=== PATIENT | female | born 1985 | race Caucasian/White ===

== ENCOUNTER → 2017-01-24 | Outpatient (CLI) | payer MEDICAID ==
[~2017-01-24] MED LIST: ALPR0.5T6 PO; DIPH25CA61; FENU500C PO; FOLIC ACID; HYDR-3138 PO; IBUP800T PO; OXYC-229 PO; OXYC-302 PO; PREN1TAB60; SERT50TA PO; VENL75CA6 PO
== END | disposition home or self-care (01) ==
LOC: RAD 12:42
PROVIDERS: ATTEND Nurse Practitioner Primary Care
DX: N83.202 Unspecified ovarian cyst, left side (principal); N83.201 Unspecified ovarian cyst, right side; Z90.710 Acquired absence of both cervix and uterus
CPT/HCPCS: 76830

== ENCOUNTER 2017-04-09 20:04 | Emergency (ER) | payer MEDICAID, OTHER ==
[~2017-04-09] VITALS: Ht 157.5 cm; Wt 63.0 kg
[~2017-04-09 20:04] MED LIST changes: -HYDR-3138 PO; +HYDR-3237 PO; +IBUP-1223 PO; -IBUP800T PO; -OXYC-229 PO; +OXYC-307 PO
[2017-04-09] MEDS ORDERED: MAALOX/HYOSCYAMINE/LIDOCAINE 45 ML BTL PO ONE (20:30)
[2017-04-09] MEDS ORDERED: FAMOTIDINE 20 MG/2 ML IVP ONE (20:30)
[2017-04-09] MEDS ORDERED: SODIUM CHLORIDE FLUSH 10ML SYR IVF ONE (20:30)
[2017-04-09] MEDS ORDERED: ONDANSETRON 2MG/ML, 2ML IVPush ONE (20:30)
[2017-04-09] MEDS ORDERED: SODIUM CHLORIDE 0.9% 1,000ML IVBOLUS ONE (20:30)
[2017-04-09] MEDS ORDERED: FAMOTIDINE 20 MG/2 ML ONE (20:49)
[2017-04-09] MEDS ORDERED: ONDANSETRON 2MG/ML, 2ML ONE ×2 (20:49→23:19)
[2017-04-09] MEDS ORDERED: MAALOX/HYOSCYAMINE/LIDOCAINE 45 ML BTL ONE (20:49)
[2017-04-09 21:04] LABS: HEMATOCRIT 41.3 % (34.6-47.8); HEMOGLOBIN 14.1 g/dL (11.7-16.4); WHITE BLOOD COUNT 5.7 x10^3/uL (3.4-10)
[2017-04-09 21:11] LABS: BLOOD UREA NITROGEN 8 mg/dL (7-18)
[2017-04-09 21:36] LABS: ASPARTATE AMINO TRANSFERASE 18 U/L (15-37)
[2017-04-09 23:28] VITALS: BP 97/66
== END 2017-04-09 23:52 | disposition home or self-care (01) ==
LOC: ED 23:10
DX: A09 Infectious gastroenteritis and colitis, unspecified (principal); G89.29 Other chronic pain; R10.9 Unspecified abdominal pain; F17.200 Nicotine dependence, unspecified, uncomplicated; Z90.710 Acquired absence of both cervix and uterus
CPT/HCPCS: 36415; 80048; 80076; 82040; 83690; 84703; 85025; 96361; 96374; 96375; 99284; J2405; J7030; S0028

== ENCOUNTER 2017-09-11 14:43 | Emergency (ER) | payer MEDICAID ==
[~2017-09-11] VITALS: Ht 160 cm; Wt 62.1 kg
[2017-09-11 15:18] LABS: BASOPHILS # (AUTO) 0.01 x10^3/uL (0-0.1); BASOPHILS % (AUTO) 0 % (0-1); EOSINOPHILS # (AUTO) 0.01 x10^3/uL (0-0.4); EOSINOPHILS % (AUTO) 0 % (1-7); LYMPHOCYTES # (AUTO) 1.81 x10^3/uL (1-3.4); LYMPHOCYTES % (AUTO) 39 % (22-44); MD NO; MEAN CORPUSCULAR HEMOGLOBIN 33.9 pg (27.0-34.8); MEAN CORPUSCULAR HGB CONC 34.7 g/dL (32.4-35.8); MEAN CORPUSCULAR VOLUME 97.7 fL (80-100); MEAN PLATELET VOLUME 6.6 fL (7.4-10.4); MONOCYTES # (AUTO) 0.25 x10^3/uL (0.2-0.8); MONOCYTES % (AUTO) 6 % (2-9); NEUTROPHILS # (AUTO) 2.54 x10^3/uL (1.8-6.8); NEUTROPHILS % (AUTO) 55 % (42-75); PLATELET COUNT 269 x10^3/uL (130-400); RED BLOOD COUNT 4.01 x10^6/uL (3.82-5.3); RED CELL DISTRIBUTION WIDTH 12.5 % (9.6-15.2)
[2017-09-11 15:31] LABS: ALBUMIN 4.1 g/dL (3.4-5.0); ANION GAP 5 mmol/L (5-15); CALCIUM 8.2 mg/dL (8.5-10.1); CHLORIDE 116 mmol/L (98-107)
[2017-09-11 15:34] LABS: ALANINE AMINOTRANSFERASE 21 U/L (12-78); ALKALINE PHOSPHATASE 39 U/L (45-117); BILIRUBIN,TOTAL 0.7 mg/dL (0.2-1.0); CREATININE 0.84 mg/dL (0.55-1.02); TOTAL PROTEIN 7.5 g/dL (6.4-8.2)
[2017-09-11] MEDS ORDERED: IBUPROFEN 200 MG TABLET ONE (15:49)
[2017-09-11] MEDS ORDERED: IBUPROFEN 200 MG TABLET PO ONE (16:00)
[2017-09-11] MEDS ORDERED: HYDR-3307 PO (16:55)
[2017-09-11] MEDS ORDERED: DULO60CA7 PO (16:56)
[2017-09-11 17:12] LABS: MICROSCOPIC INDICATED
[2017-09-11 17:25] LABS: CULTURE INDICATED? NO
[2017-09-11 18:17] VITALS: BP 132/86
== END 2017-09-11 18:19 | disposition home or self-care (01) ==
LOC: ED 15:45
DX: R10.32 Left lower quadrant pain (principal); Z90.710 Acquired absence of both cervix and uterus; F17.200 Nicotine dependence, unspecified, uncomplicated
CPT/HCPCS: 36415; 76830; 80053; 81001; 85025; 99285

== ENCOUNTER 2017-11-23 10:19 | Emergency (ER) | payer MEDICAID ==
[~2017-11-23] VITALS: Ht 160 cm; Wt 59.0 kg
[~2017-11-23 10:19] MED LIST changes: +DULO60CA7 PO; +HYDR-3307 PO
[2017-11-23] MEDS ORDERED: KETOROLAC 30 MG/1 ML ONE (11:09)
[2017-11-23 11:15] VITALS: BP 107/68
[2017-11-23 11:19] LABS: BASOPHILS # (AUTO) 0.01 x10^3/uL (0-0.1); BASOPHILS % (AUTO) 0 % (0-1); EOSINOPHILS # (AUTO) 0.06 x10^3/uL (0-0.4); EOSINOPHILS % (AUTO) 2 % (1-7); LYMPHOCYTES % (AUTO) 38 % (22-44); MD NO; MEAN CORPUSCULAR HGB CONC 33.8 g/dL (32.4-35.8); MEAN CORPUSCULAR VOLUME 100.7 fL (80-100); MEAN PLATELET VOLUME 6.5 fL (7.4-10.4); MONOCYTES # (AUTO) 0.24 x10^3/uL (0.2-0.8); MONOCYTES % (AUTO) 6 % (2-9); NEUTROPHILS # (AUTO) 2.11 x10^3/uL (1.8-6.8); NEUTROPHILS % (AUTO) 54 % (42-75); PLATELET COUNT 260 x10^3/uL (130-400); RED BLOOD COUNT 3.94 x10^6/uL (3.82-5.3); RED CELL DISTRIBUTION WIDTH 12.8 % (9.6-15.2)
[2017-11-23] MEDS ORDERED: KETOROLAC 30 MG/1 ML IM ONE (11:30)
[2017-11-23 11:37] LABS: ALBUMIN 3.8 g/dL (3.4-5.0); ANION GAP 7 mmol/L (5-15); CALCIUM 8.4 mg/dL (8.5-10.1); CHLORIDE 114 mmol/L (98-107); CREATININE 0.76 mg/dL (0.55-1.02)
== END 2017-11-23 12:42 | disposition home or self-care (01) ==
LOC: ED 12:00
DX: R10.32 Left lower quadrant pain (principal); K92.0 Hematemesis; R30.0 Dysuria; F32.9 Major depressive disorder, single episode, unspecified; Z90.710 Acquired absence of both cervix and uterus
CPT/HCPCS: 36415; 76830; 80048; 82040; 85025; 96372; 99285; J1885

== ENCOUNTER 2017-12-03 13:27 | Emergency (ER) | payer MEDICAID ==
[~2017-12-03] VITALS: Ht 160 cm; Wt 59.1 kg
[2017-12-03] MEDS ORDERED: ONDANSETRON ODT 4 MG ONE (13:37)
[2017-12-03] MEDS ORDERED: ONDANSETRON ODT 4 MG PO ONE (14:00)
[2017-12-03 14:08] LABS: BASOPHILS # (AUTO) 0.02 x10^3/uL (0-0.1); BASOPHILS % (AUTO) 1 % (0-1); EOSINOPHILS # (AUTO) 0.07 x10^3/uL (0-0.4); EOSINOPHILS % (AUTO) 2 % (1-7); LYMPHOCYTES # (AUTO) 1.75 x10^3/uL (1-3.4); LYMPHOCYTES % (AUTO) 36 % (22-44); MD NO; MEAN CORPUSCULAR HEMOGLOBIN 34.1 pg (27.0-34.8); MEAN CORPUSCULAR VOLUME 100.4 fL (80-100); MEAN PLATELET VOLUME 6.6 fL (7.4-10.4); MONOCYTES % (AUTO) 6 % (2-9); NEUTROPHILS % (AUTO) 56 % (42-75); PLATELET COUNT 269 x10^3/uL (130-400); RED BLOOD COUNT 4.22 x10^6/uL (3.82-5.3); RED CELL DISTRIBUTION WIDTH 12.8 % (9.6-15.2)
[2017-12-03 14:18] LABS: ALANINE AMINOTRANSFERASE 26 U/L (12-78); ALBUMIN 3.9 g/dL (3.4-5.0); ANION GAP 6 mmol/L (5-15); CALCIUM 8.4 mg/dL (8.5-10.1); CHLORIDE 110 mmol/L (98-107); CREATININE 0.82 mg/dL (0.55-1.02)
[2017-12-03 14:21] LABS: ALKALINE PHOSPHATASE 43 U/L (45-117); BILIRUBIN,TOTAL 0.4 mg/dL (0.2-1.0); TOTAL PROTEIN 7.2 g/dL (6.4-8.2)
[2017-12-03 15:03] LABS: CULTURE INDICATED? YES; MICROSCOPIC INDICATED
[2017-12-03] MEDS ORDERED: OXYcodone/APAP 10/325MG TABLET ONE (15:15)
[2017-12-03] MEDS ORDERED: OXYcodone/APAP 10/325MG TABLET PO ONE (15:30)
[2017-12-03 15:55] VITALS: BP 117/74
== END 2017-12-03 15:58 | disposition home or self-care (01) ==
LOC: ED 14:55
DX: N83.202 Unspecified ovarian cyst, left side (principal); N83.201 Unspecified ovarian cyst, right side; N80.9 Endometriosis, unspecified; F17.200 Nicotine dependence, unspecified, uncomplicated; Z90.710 Acquired absence of both cervix and uterus; Z98.51 Tubal ligation status
CPT/HCPCS: 36415; 76830; 80053; 81001; 83690; 85025; 87086; 99285; Q0162

== ENCOUNTER 2018-04-06 17:12 | Emergency (ER) | payer MEDICAID ==
[~2018-04-06] VITALS: Ht 162.6 cm; Wt 64.4 kg
[2018-04-06 17:29] VITALS: BP 113/74
[2018-04-06] MEDS ORDERED: KETOROLAC 30 MG/1 ML ONE (18:00)
[2018-04-06] MEDS ORDERED: KETOROLAC 30 MG/1 ML IM ONE (18:00)
[2018-04-06] MEDS ORDERED: HYDROcodone/APAP 5/325 TABLET ONE (18:22)
[2018-04-06] MEDS ORDERED: HYDROcodone/APAP 5/325 TABLET PO ONE (18:30)
== END 2018-04-06 18:33 | disposition home or self-care (01) ==
LOC: ED 18:05
DX: S46.011A Strain of muscle(s) and tendon(s) of the rotator cuff of right shoulder, initial encounter (principal); X58.XXXA Exposure to other specified factors, initial encounter; Y93.89 Activity, other specified; Y92.89 Other specified places as the place of occurrence of the external cause; Y99.8 Other external cause status
CPT/HCPCS: 73030; 96372; 99284; J1885

== ENCOUNTER 2018-05-05 12:39 | Emergency (ER) | payer MEDICAID ==
[~2018-05-05] VITALS: Ht 160 cm; Wt 64.0 kg
[2018-05-05] MEDS ORDERED: LORazepam 1MG TABLET PO ONE (13:00)
[2018-05-05 13:10] LABS: BASOPHILS # (AUTO) 0.03 x10^3/uL (0-0.1); BASOPHILS % (AUTO) 1 % (0-1); EOSINOPHILS # (AUTO) 0.08 x10^3/uL (0-0.4); EOSINOPHILS % (AUTO) 2 % (1-7); LYMPHOCYTES # (AUTO) 1.71 x10^3/uL (1-3.4); LYMPHOCYTES % (AUTO) 37 % (22-44); MD NO; MEAN CORPUSCULAR HEMOGLOBIN 34.9 pg (27.0-34.8); MEAN CORPUSCULAR HGB CONC 34.8 g/dL (32.4-35.8); MEAN CORPUSCULAR VOLUME 100.3 fL (80-100); MEAN PLATELET VOLUME 6.7 fL (7.4-10.4); MONOCYTES # (AUTO) 0.35 x10^3/uL (0.2-0.8); MONOCYTES % (AUTO) 7 % (2-9); NEUTROPHILS # (AUTO) 2.52 x10^3/uL (1.8-6.8); NEUTROPHILS % (AUTO) 54 % (42-75); PLATELET COUNT 266 x10^3/uL (130-400); RED CELL DISTRIBUTION WIDTH 12.9 % (9.6-15.2)
[2018-05-05 13:22] LABS: ALBUMIN 4.1 g/dL (3.4-5.0); ANION GAP 8 mmol/L (5-15); CALCIUM 8.8 mg/dL (8.5-10.1); CHLORIDE 110 mmol/L (98-107)
[2018-05-05 13:28] LABS: ALANINE AMINOTRANSFERASE 28 U/L (12-78); ALKALINE PHOSPHATASE 41 U/L (45-117); BILIRUBIN,TOTAL 0.6 mg/dL (0.2-1.0); CREATININE 0.74 mg/dL (0.55-1.02); TOTAL PROTEIN 7.4 g/dL (6.4-8.2)
[2018-05-05 13:29] LABS: ACETAMINOPHEN < 2 mcg/mL (10-30); SALICYLATE LEVEL < 1.7 mg/dL (2.8-20.0)
[2018-05-05] MEDS ORDERED: ALPR2TAB2 PO (14:12)
[2018-05-05] MEDS ORDERED: SERT50TA PO (14:13)
[2018-05-05] MEDS ORDERED: LORazepam 1MG TABLET ONE (14:20)
[2018-05-05 18:04] LABS: AMPHETAMINE SCREEN, URINE Negative (Negative); BARBITURATE SCREEN, URINE Negative (Negative); BENZODIAZEPINE SCREEN, URINE Negative (Negative); CANNABINOID SCREEN, URINE Negative (Negative); COCAINE SCREEN, URINE Negative (Negative); OPIATE SCREEN, URINE Negative (Negative)
[2018-05-05 18:06] LABS: METHADONE SCREEN, URINE Negative (Negative)
[2018-05-05 18:32] VITALS: BP 106/70
== END 2018-05-05 18:35 | disposition home or self-care (01) ==
LOC: ED 14:18
DX: F41.9 Anxiety disorder, unspecified (principal); F32.9 Major depressive disorder, single episode, unspecified; Z87.42 Personal history of other diseases of the female genital tract; Z90.710 Acquired absence of both cervix and uterus; Z98.51 Tubal ligation status
CPT/HCPCS: 36415; 80053; 80307; 80329; 84443; 84703; 85025; 99284; G0480

== ENCOUNTER 2018-05-09 20:00 | Emergency (ER) | payer MEDICAID ==
[~2018-05-09] VITALS: Ht 157.5 cm; Wt 135.0 kg
[~2018-05-09 20:00] MED LIST changes: +ALPR2TAB2 PO
[2018-05-09 20:06] VITALS: BP 104/73
[2018-05-09] MEDS ORDERED: LORazepam 1MG TABLET PO ONE ×2 (21:00→21:30)
[2018-05-09] MEDS ORDERED: LORazepam 1MG TABLET ONE ×2 (21:07→21:33)
== END 2018-05-09 21:41 | disposition home or self-care (01) ==
LOC: ED 21:20
DX: F41.0 Panic disorder [episodic paroxysmal anxiety] (principal); F32.9 Major depressive disorder, single episode, unspecified; F17.210 Nicotine dependence, cigarettes, uncomplicated; Z76.0 Encounter for issue of repeat prescription
CPT/HCPCS: 99283

== ENCOUNTER 2018-06-05 21:13 | Emergency (ER) | payer MEDICAID ==
[~2018-06-05] VITALS: Ht 157.5 cm; Wt 65.3 kg
[2018-06-05 21:24] VITALS: BP 102/73
[2018-06-05] MEDS ORDERED: MORPHINE SULFATE 4 MG/ML, 1ML ONE ×2 (21:51→23:04)
[2018-06-05] MEDS ORDERED: ONDANSETRON 2MG/ML, 2ML ONE (21:51)
[2018-06-05] MEDS: MORPHINE SULFATE 4 MG/ML, 1ML IVPush PRN ×2 (22:00→23:08)
[2018-06-05] MEDS ORDERED: SODIUM CHLORIDE FLUSH 10ML SYR IVF ONE (22:00)
[2018-06-05] MEDS ORDERED: ONDANSETRON 2MG/ML, 2ML IVPush ONE (22:00)
[2018-06-05 22:04] LABS: BASOPHILS # (AUTO) 0.04 x10^3/uL (0-0.1); BASOPHILS % (AUTO) 1 % (0-1); EOSINOPHILS % (AUTO) 4 % (1-7); LYMPHOCYTES # (AUTO) 1.85 x10^3/uL (1-3.4); LYMPHOCYTES % (AUTO) 32 % (22-44); MD NO; MEAN CORPUSCULAR HEMOGLOBIN 34.7 pg (27.0-34.8); MEAN CORPUSCULAR HGB CONC 34.8 g/dL (32.4-35.8); MEAN CORPUSCULAR VOLUME 99.7 fL (80-100); MEAN PLATELET VOLUME 6.6 fL (7.4-10.4); MONOCYTES # (AUTO) 0.37 x10^3/uL (0.2-0.8); MONOCYTES % (AUTO) 7 % (2-9); NEUTROPHILS # (AUTO) 3.25 x10^3/uL (1.8-6.8); NEUTROPHILS % (AUTO) 57 % (42-75); PLATELET COUNT 262 x10^3/uL (130-400); RED BLOOD COUNT 4.21 x10^6/uL (3.82-5.3); RED CELL DISTRIBUTION WIDTH 12.4 % (9.6-15.2)
[2018-06-05 22:17] LABS: ALBUMIN 3.9 g/dL (3.4-5.0); ANION GAP 3 mmol/L (5-15); CALCIUM 8.9 mg/dL (8.5-10.1); CHLORIDE 111 mmol/L (98-107); CREATININE 0.77 mg/dL (0.55-1.02)
[2018-06-05 22:27] LABS: MICROSCOPIC INDICATED
[2018-06-05 22:38] LABS: CULTURE INDICATED? NO
== END 2018-06-05 23:52 | disposition home or self-care (01) ==
LOC: ED 21:38
DX: R30.0 Dysuria (principal); F41.1 Generalized anxiety disorder; F32.9 Major depressive disorder, single episode, unspecified; R10.9 Unspecified abdominal pain; Z87.19 Personal history of other diseases of the digestive system; Z87.42 Personal history of other diseases of the female genital tract
CPT/HCPCS: 36415; 80048; 81001; 82040; 84703; 85025; 96374; 96375; 96376; 99283; J2405

== ENCOUNTER 2018-09-20 00:05 | Emergency (ER) | payer MEDICAID ==
[~2018-09-20] VITALS: Ht 160 cm; Wt 69.6 kg
[2018-09-20 00:06] VITALS: BP 106/73
--- NOTE | 2018-09-20 00:28 | NUR ---
PT TO ROOM IN GOWN AND ERP TO BEDSIDE WITH ORDERS.
[2018-09-20] MEDS ORDERED: MORPHINE SULFATE 4 MG/ML, 1ML IVPush PRN (00:30)
[2018-09-20] MEDS ORDERED: SODIUM CHLORIDE FLUSH 10ML SYR IVF ONE (00:30)
[2018-09-20] MEDS ORDERED: MORPHINE SULFATE 4 MG/ML, 1ML ONE ×2 (00:55→02:17)
[2018-09-20 00:59] LABS: BASOPHILS # (AUTO) 0.01 x10^3/uL (0-0.1); BASOPHILS % (AUTO) 0 % (0-1); EOSINOPHILS # (AUTO) 0.21 x10^3/uL (0-0.4); EOSINOPHILS % (AUTO) 3 % (1-7); LYMPHOCYTES # (AUTO) 2.37 x10^3/uL (1-3.4); LYMPHOCYTES % (AUTO) 35 % (22-44); MD NO; MEAN CORPUSCULAR HEMOGLOBIN 33.8 pg (27.0-34.8); MEAN CORPUSCULAR HGB CONC 34.2 g/dL (32.4-35.8); MEAN CORPUSCULAR VOLUME 98.8 fL (80-100); MEAN PLATELET VOLUME 6.7 fL (7.4-10.4); MONOCYTES # (AUTO) 0.34 x10^3/uL (0.2-0.8); MONOCYTES % (AUTO) 5 % (2-9); NEUTROPHILS % (AUTO) 56 % (42-75); PLATELET COUNT 280 x10^3/uL (130-400); RED BLOOD COUNT 4.15 x10^6/uL (3.82-5.3); RED CELL DISTRIBUTION WIDTH 12.5 % (9.6-15.2)
[2018-09-20 01:09] LABS: ALANINE AMINOTRANSFERASE 27 U/L (12-78); ALBUMIN 3.6 g/dL (3.4-5.0); ANION GAP 7 mmol/L (5-15); CALCIUM 8.7 mg/dL (8.5-10.1); CHLORIDE 108 mmol/L (98-107); CREATININE 0.73 mg/dL (0.55-1.02)
[2018-09-20 01:14] LABS: ALKALINE PHOSPHATASE 43 U/L (45-117); BILIRUBIN,TOTAL 0.3 mg/dL (0.2-1.0); TOTAL PROTEIN 6.8 g/dL (6.4-8.2)
[2018-09-20 02:15] LABS: MICROSCOPIC AUTO
[2018-09-20 02:16] LABS: CULTURE INDICATED? NO
[2018-09-20] MEDS ORDERED: OMNIPAQUE 350 MG/ML, 100ML BOTTLE ONE (02:33)
== END 2018-09-20 02:37 | disposition home or self-care (01) ==
LOC: ED 02:25
DX: N83.292 Other ovarian cyst, left side (principal); R10.32 Left lower quadrant pain; K91.870 Postprocedural hematoma of a digestive system organ or structure following a digestive system procedure
CPT/HCPCS: 36415; 74177; 80053; 81001; 83690; 84703; 85025; 96374; 99284; Q9967

== ENCOUNTER 2018-10-24 14:34 | Emergency (ER) | payer MEDICAID ==
[~2018-10-24] VITALS: Ht 160 cm; Wt 70.1 kg
--- NOTE | 2018-10-24 14:45 | NUR ---
Pt to 26 from lobby
--- NOTE | 2018-10-24 14:57 | NUR ---
Assumed care of patient. C/O flank pain and painful uriantion. UA sent. Will continue to monitor.
[2018-10-24 15:01] LABS: MICROSCOPIC NOT IND
[2018-10-24 15:03] LABS: CULTURE INDICATED? NO
[2018-10-24 15:07] LABS: BASOPHILS # (AUTO) 0.01 x10^3/uL (0-0.1); BASOPHILS % (AUTO) 0 % (0-1); EOSINOPHILS # (AUTO) 0.08 x10^3/uL (0-0.4); EOSINOPHILS % (AUTO) 1 % (1-7); LYMPHOCYTES % (AUTO) 27 % (22-44); MD NO; MEAN CORPUSCULAR HEMOGLOBIN 34.2 pg (27.0-34.8); MEAN CORPUSCULAR HGB CONC 35.2 g/dL (32.4-35.8); MEAN CORPUSCULAR VOLUME 97.3 fL (80-100); MEAN PLATELET VOLUME 6.9 fL (7.4-10.4); MONOCYTES # (AUTO) 0.31 x10^3/uL (0.2-0.8); MONOCYTES % (AUTO) 6 % (2-9); NEUTROPHILS # (AUTO) 3.63 x10^3/uL (1.8-6.8); NEUTROPHILS % (AUTO) 66 % (42-75); PLATELET COUNT 246 x10^3/uL (130-400); RED BLOOD COUNT 4.63 x10^6/uL (3.82-5.3); RED CELL DISTRIBUTION WIDTH 12.2 % (9.6-15.2)
[2018-10-24] MEDS ORDERED: KETOROLAC 30 MG/1 ML ONE (15:12)
[2018-10-24] MEDS ORDERED: CYCLOBENZAPRINE 10 MG TABLET ONE (15:12)
[2018-10-24 15:16] LABS: ALANINE AMINOTRANSFERASE 27 U/L (12-78); ALBUMIN 3.9 g/dL (3.4-5.0); ANION GAP 5 mmol/L (5-15); CALCIUM 8.9 mg/dL (8.5-10.1); CHLORIDE 113 mmol/L (98-107); CREATININE 0.73 mg/dL (0.55-1.02)
[2018-10-24 15:20] LABS: ALKALINE PHOSPHATASE 45 U/L (45-117); BILIRUBIN,TOTAL 0.3 mg/dL (0.2-1.0); TOTAL PROTEIN 7.4 g/dL (6.4-8.2)
[2018-10-24] MEDS ORDERED: CYCLOBENZAPRINE 10 MG TABLET PO SCH (15:30)
[2018-10-24] MEDS ORDERED: CYCLOBENZAPRINE 10 MG TABLET PO ONE (15:30)
[2018-10-24] MEDS ORDERED: KETOROLAC 30 MG/1 ML IM ONE (15:30)
[2018-10-24] MEDS ORDERED: HYDROcodone/APAP 5/325 TABLET ONE (16:13)
--- NOTE | 2018-10-24 16:17 | NUR ---
Continues to have C/O pain. [place] admin.
[2018-10-24] MEDS ORDERED: HYDROcodone/APAP 5/325 TABLET PO ONE (16:30)
--- NOTE | 2018-10-24 17:15 | NUR ---
Resting in [facility]. No needs.
[2018-10-24 18:08] VITALS: BP 112/68
--- NOTE | 2018-10-24 18:19 | NUR ---
Patient/Caregiver given discharge instructions and they have confirmed that they understand the instructions. Patient ambulatory with steady gait.
== END 2018-10-24 18:18 ==
LOC: ED 15:11
DX: S39.012A Strain of muscle, fascia and tendon of lower back, initial encounter (principal); F17.200 Nicotine dependence, unspecified, uncomplicated; X58.XXXA Exposure to other specified factors, initial encounter; Y93.89 Activity, other specified; Y92.89 Other specified places as the place of occurrence of the external cause; Y99.8 Other external cause status
CPT/HCPCS: 36415; 74176; 80053; 81003; 83690; 84703; 85025; 96372; 99284; J1885

== ENCOUNTER 2019-01-10 21:02 | Emergency (ER) | payer MEDICAID ==
[~2019-01-10] VITALS: Ht 160 cm; Wt 70.0 kg
[2019-01-10 21:10] VITALS: BP 98/72
[2019-01-10] MEDS ORDERED: OXYcodone/APAP 5/325MG TABLET ONE (21:37)
[2019-01-10] MEDS ORDERED: OXYcodone/APAP 5/325MG TABLET PO ONE (22:00)
--- NOTE | 2019-01-10 22:20 | NUR ---
PT REPORTS IMPROVEMENT IN PAIN. DC EDUCATION PROVIDED, PT DEMONSTRATES UNDERSTANDING. PT AMBULATED STEADILY TO DC WITH RN. MOTHER IN LOBBY TO TRANSPORT PT HOME
== END 2019-01-10 22:22 | disposition home or self-care (01) ==
LOC: ED 21:45
DX: K08.89 Other specified disorders of teeth and supporting structures (principal); F32.9 Major depressive disorder, single episode, unspecified; F41.1 Generalized anxiety disorder; F17.200 Nicotine dependence, unspecified, uncomplicated
CPT/HCPCS: 99283

== ENCOUNTER 2019-01-30 13:37 | Emergency (ER) | payer MEDICAID ==
[~2019-01-30] VITALS: Ht 160 cm; Wt 69.0 kg
[2019-01-30 13:46] VITALS: BP 105/67
== END 2019-01-30 14:41 | disposition home or self-care (01) ==
LOC: ED 14:30
DX: F41.1 Generalized anxiety disorder (principal); F17.200 Nicotine dependence, unspecified, uncomplicated
CPT/HCPCS: 99284

== ENCOUNTER 2019-02-08 16:52 | Emergency (ER) | payer MEDICAID ==
[~2019-02-08] VITALS: Ht 160 cm; Wt 70.7 kg
[2019-02-08 16:53] VITALS: BP 113/68
== END 2019-02-08 18:09 | disposition home or self-care (01) ==
LOC: ED 18:03
DX: S39.012A Strain of muscle, fascia and tendon of lower back, initial encounter (principal); F43.10 Post-traumatic stress disorder, unspecified; Z90.710 Acquired absence of both cervix and uterus; F17.210 Nicotine dependence, cigarettes, uncomplicated; W10.9XXA Fall (on) (from) unspecified stairs and steps, initial encounter; Y93.89 Activity, other specified; Y92.89 Other specified places as the place of occurrence of the external cause; Y99.8 Other external cause status
CPT/HCPCS: 72072; 72110; 96372; 99283; J1885

== ENCOUNTER 2019-07-24 20:05 | Emergency (ER) | payer MEDICAID ==
[~2019-07-24] VITALS: Ht 160 cm; Wt 71.7 kg
[~2019-07-24 20:05] MED LIST changes: +ARIP10TA33 PO; -HYDR-3307 PO; +HYDR-36 PO
--- NOTE | 2019-07-24 20:43 | NUR ---
PT C/O DIARRHEA X3 DAYS. OCCASIONAL VOMITTING. CONNECTED TO MONITORING. CALL LIGHT IN REACH. AWAITING ORDERS AT THIS TIME.
[2019-07-24] MEDS ORDERED: ONDANSETRON 2MG/ML, 2ML IVPush ONE (21:00)
[2019-07-24] MEDS ORDERED: MORPHINE SULFATE 4 MG/ML, 1ML IVPush PRN (21:00)
[2019-07-24] MEDS ORDERED: SODIUM CHLORIDE 0.9% 1,000ML IVBOLUS ONE (21:00)
--- NOTE | 2019-07-24 21:13 | NUR ---
IV START. LABS DRAWN. STOOL COLLECTED. IVF RUNNING PER AUG.
[2019-07-24] MEDS ORDERED: MORPHINE SULFATE 4 MG/ML, 1ML ONE (21:15)
[2019-07-24] MEDS ORDERED: ONDANSETRON 2MG/ML, 2ML ONE (21:15)
--- NOTE | 2019-07-24 21:22 | NUR ---
MEDS ADMIN PER AUG. OXYGEN PLACE PREVENTATIVE. PT RESTING ON [facility]. [facility].
--- NOTE | 2019-07-24 21:28 | NUR ---
PT WAS UNABLE TO PROVIDE URINE SAMPLE. WILL TRY AGAIN AFTER IVF INFUSE.
--- NOTE | 2019-07-24 21:29 | NUR ---
LAB STATES CBC WAS CLOTTED AND NEW SAMPLE WILL BE DRAWN.
[2019-07-24 21:37] LABS: ALBUMIN 4.2 g/dL (3.4-5.0); ANION GAP 11 mmol/L (5-15); CALCIUM 8.6 mg/dL (8.5-10.1); CHLORIDE 112 mmol/L (98-107); CREATININE 0.87 mg/dL (0.55-1.02)
[2019-07-24 22:02] LABS: BASOPHILS # (AUTO) 0.02 x10^3/uL (0-0.1); BASOPHILS % (AUTO) 0 % (0-1); EOSINOPHILS # (AUTO) 0.14 x10^3/uL (0-0.4); EOSINOPHILS % (AUTO) 2 % (1-7); LYMPHOCYTES # (AUTO) 1.25 x10^3/uL (1-3.4); LYMPHOCYTES % (AUTO) 21 % (22-44); MD NO; MEAN CORPUSCULAR HEMOGLOBIN 33.8 pg (27.0-34.8); MEAN CORPUSCULAR HGB CONC 34.2 g/dL (32.4-35.8); MEAN CORPUSCULAR VOLUME 98.7 fL (80-100); MEAN PLATELET VOLUME 6.5 fL (7.4-10.4); MONOCYTES # (AUTO) 0.49 x10^3/uL (0.2-0.8); MONOCYTES % (AUTO) 8 % (2-9); NEUTROPHILS # (AUTO) 4.14 x10^3/uL (1.8-6.8); NEUTROPHILS % (AUTO) 69 % (42-75); PLATELET COUNT 263 x10^3/uL (130-400); RED BLOOD COUNT 4.19 x10^6/uL (3.82-5.3); RED CELL DISTRIBUTION WIDTH 12.8 % (9.6-15.2)
[2019-07-24 22:14] LABS: CLOSTRIDIUM DIFFICILE ANTIGEN NEGATIVE; CLOSTRIDIUM DIFFICILE TOXIN NEGATIVE (Negative)
--- NOTE | 2019-07-24 22:19 | NUR ---
PT PROVIDED URINE SAMPLE. UA COLLECTED AND SENT TO LAB.
[2019-07-24 22:23] VITALS: BP 110/70
[2019-07-24 22:25] LABS: MICROSCOPIC INDICATED
--- NOTE | 2019-07-24 22:27 | NUR ---
MD AT BEDSIDE TO UPDATE PT ON POC.
[2019-07-24 22:33] LABS: CULTURE INDICATED? YES
== END 2019-07-24 22:48 | disposition home or self-care (01) ==
LOC: ED 21:49
DX: R19.7 Diarrhea, unspecified (principal); R11.2 Nausea with vomiting, unspecified; R10.9 Unspecified abdominal pain; Z90.710 Acquired absence of both cervix and uterus
CPT/HCPCS: 36415; 80048; 81001; 82040; 85025; 87046; 87086; 87324; 89055; 96361; 96374; 96375; 99283; J2270; J2405; J7030

== ENCOUNTER 2019-08-30 23:57 | Emergency (ER) | payer MEDICAID ==
[~2019-08-30] VITALS: Ht 160 cm; Wt 70.1 kg
[2019-08-31] MEDS ORDERED: MORPHINE SULFATE 4 MG/ML, 1ML IVPush PRN (00:30)
[2019-08-31] MEDS ORDERED: ONDANSETRON 2MG/ML, 2ML IVPush ONE (00:30)
[2019-08-31] MEDS ORDERED: SODIUM CHLORIDE FLUSH 10ML SYR IVF ONE (00:30)
[2019-08-31] MEDS ORDERED: SODIUM CHLORIDE 0.9% 1,000ML IVBOLUS ONE (00:30)
[2019-08-31] MEDS ORDERED: ONDANSETRON 2MG/ML, 2ML ONE (00:34)
[2019-08-31] MEDS ORDERED: MORPHINE SULFATE 4 MG/ML, 1ML ONE (00:34)
[2019-08-31 00:39] VITALS: BP 106/58
[2019-08-31 00:40] LABS: BASOPHILS # (AUTO) 0.03 x10^3/uL (0-0.1); BASOPHILS % (AUTO) 1 % (0-1); EOSINOPHILS # (AUTO) 0.15 x10^3/uL (0-0.4); EOSINOPHILS % (AUTO) 2 % (1-7); LYMPHOCYTES % (AUTO) 34 % (22-44); MD NO; MEAN CORPUSCULAR HEMOGLOBIN 33.1 pg (27.0-34.8); MEAN CORPUSCULAR HGB CONC 33.9 g/dL (32.4-35.8); MEAN CORPUSCULAR VOLUME 97.7 fL (80-100); MEAN PLATELET VOLUME 6.7 fL (7.4-10.4); MONOCYTES # (AUTO) 0.53 x10^3/uL (0.2-0.8); MONOCYTES % (AUTO) 8 % (2-9); NEUTROPHILS # (AUTO) 3.68 x10^3/uL (1.8-6.8); NEUTROPHILS % (AUTO) 55 % (42-75); PLATELET COUNT 262 x10^3/uL (130-400); RED BLOOD COUNT 4.31 x10^6/uL (3.82-5.3); RED CELL DISTRIBUTION WIDTH 12.8 % (9.6-15.2)
[2019-08-31 00:49] LABS: ALANINE AMINOTRANSFERASE 24 U/L (12-78); ANION GAP 8 mmol/L (5-15); CALCIUM 8.9 mg/dL (8.5-10.1); CHLORIDE 110 mmol/L (98-107); CREATININE 0.73 mg/dL (0.55-1.02)
[2019-08-31 00:54] LABS: ALKALINE PHOSPHATASE 59 U/L (45-117); BILIRUBIN,TOTAL 0.3 mg/dL (0.2-1.0); TOTAL PROTEIN 7.7 g/dL (6.4-8.2)
[2019-08-31] MEDS ORDERED: KETOROLAC 30 MG/1 ML ONE (03:13)
--- NOTE | 2019-08-31 04:50 | NUR ---
PET HOUSE SITTER: SEE PAPER CHART FOR DOWNTIME CHARTING.
[2019-08-31 09:35] LABS: CULTURE INDICATED? NO; MICROSCOPIC NOT IND
== END 2019-08-31 04:51 ==
LOC: ED 08-31 00:27
DX: R10.84 Generalized abdominal pain (principal); R11.2 Nausea with vomiting, unspecified; Z90.710 Acquired absence of both cervix and uterus
CPT/HCPCS: 36415; 74177; 80053; 81003; 83690; 84703; 85025; 96361; 96374; 96375; 99285; J2270; J2405; J7030

== ENCOUNTER 2019-10-06 20:27 | Emergency (ER) | payer MEDICAID ==
[~2019-10-06] VITALS: Ht 160 cm; Wt 73.0 kg
[2019-10-06] MEDS ORDERED: MORPHINE SULFATE 4 MG/ML, 1ML ONE (21:24)
[2019-10-06] MEDS ORDERED: ONDANSETRON 2MG/ML, 2ML ONE (21:24)
[2019-10-06] MEDS ORDERED: ONDANSETRON 2MG/ML, 2ML IVPush ONE (21:30)
[2019-10-06] MEDS ORDERED: SODIUM CHLORIDE FLUSH 10ML SYR IVF ONE (21:30)
[2019-10-06] MEDS ORDERED: MORPHINE SULFATE 4 MG/ML, 1ML IVPush PRN (21:30)
--- NOTE | 2019-10-06 21:30 | NUR ---
PT HERE FOR RUQ PAIN WITH N/V/D X 1 DAYS. VSS. PIV ALCED AND PT MEDICATED FOR PAIN AND NAUSEA. US AT BEDSIDE. CALL LIGHT IN REACH
[2019-10-06 21:31] LABS: BASOPHILS # (AUTO) 0.03 x10^3/uL (0-0.1); BASOPHILS % (AUTO) 0 % (0-1); EOSINOPHILS # (AUTO) 0.27 x10^3/uL (0-0.4); EOSINOPHILS % (AUTO) 4 % (1-7); LYMPHOCYTES # (AUTO) 1.75 x10^3/uL (1-3.4); LYMPHOCYTES % (AUTO) 28 % (22-44); MD NO; MEAN CORPUSCULAR HEMOGLOBIN 33.1 pg (27.0-34.8); MEAN CORPUSCULAR HGB CONC 33.6 g/dL (32.4-35.8); MEAN CORPUSCULAR VOLUME 98.5 fL (80-100); MEAN PLATELET VOLUME 6.3 fL (7.4-10.4); MONOCYTES # (AUTO) 0.39 x10^3/uL (0.2-0.8); MONOCYTES % (AUTO) 6 % (2-9); NEUTROPHILS # (AUTO) 3.82 x10^3/uL (1.8-6.8); NEUTROPHILS % (AUTO) 61 % (42-75); PLATELET COUNT 294 x10^3/uL (130-400); RED BLOOD COUNT 4.38 x10^6/uL (3.82-5.3); RED CELL DISTRIBUTION WIDTH 12.9 % (9.6-15.2)
[2019-10-06 21:41] LABS: ALANINE AMINOTRANSFERASE 34 U/L (12-78); ALBUMIN 3.9 g/dL (3.4-5.0); ANION GAP 6 mmol/L (5-15); CHLORIDE 109 mmol/L (98-107); CREATININE 0.76 mg/dL (0.55-1.02)
[2019-10-06 21:44] LABS: ALKALINE PHOSPHATASE 59 U/L (45-117); BILIRUBIN,TOTAL 0.3 mg/dL (0.2-1.0); TOTAL PROTEIN 7.7 g/dL (6.4-8.2)
--- NOTE | 2019-10-06 22:33 | NUR ---
Patient given discharge instructions and they have confirmed that they understand the instructions. Patient ambulatory with steady gait.
[2019-10-06 22:34] VITALS: BP 105/71
== END 2019-10-06 22:36 | disposition home or self-care (01) ==
LOC: ED 21:27
DX: R10.11 Right upper quadrant pain (principal); R10.13 Epigastric pain; R11.2 Nausea with vomiting, unspecified; R19.7 Diarrhea, unspecified; R07.81 Pleurodynia; Z90.710 Acquired absence of both cervix and uterus
CPT/HCPCS: 36415; 76700; 80053; 83690; 85025; 96374; 96375; 99284; J2270; J2405

== ENCOUNTER 2020-01-03 14:27 | Emergency (ER) | payer MEDICAID ==
[~2020-01-03] VITALS: Ht 154.9 cm; Wt 71.1 kg
[~2020-01-03 14:27] MED LIST changes: +HYDR-3246 PO; -HYDR-36 PO
[2020-01-03 14:53] VITALS: BP 94/57
[2020-01-03] MEDS ORDERED: MORPHINE SULFATE 4 MG/ML, 1ML IVPush PRN (15:30)
[2020-01-03] MEDS ORDERED: SODIUM CHLORIDE FLUSH 10ML SYR IVF ONE (15:30)
[2020-01-03] MEDS ORDERED: ONDANSETRON 2MG/ML, 2ML IVPush ONE (15:30)
[2020-01-03 15:31] LABS: BASOPHILS # (AUTO) 0.03 x10^3/uL (0-0.1); BASOPHILS % (AUTO) 1 % (0-1); EOSINOPHILS # (AUTO) 0.05 x10^3/uL (0-0.4); EOSINOPHILS % (AUTO) 1 % (1-7); LYMPHOCYTES % (AUTO) 33 % (22-44); MD NO; MEAN CORPUSCULAR HEMOGLOBIN 32.9 pg (27.0-34.8); MEAN CORPUSCULAR HGB CONC 33.5 g/dL (32.4-35.8); MEAN CORPUSCULAR VOLUME 98.2 fL (80-100); MEAN PLATELET VOLUME 6.5 fL (7.4-10.4); MONOCYTES # (AUTO) 0.29 x10^3/uL (0.2-0.8); MONOCYTES % (AUTO) 6 % (2-9); NEUTROPHILS # (AUTO) 2.88 x10^3/uL (1.8-6.8); NEUTROPHILS % (AUTO) 59 % (42-75); PLATELET COUNT 301 x10^3/uL (130-400); RED BLOOD COUNT 4.14 x10^6/uL (3.82-5.3); RED CELL DISTRIBUTION WIDTH 12.7 % (9.6-15.2)
[2020-01-03] MEDS ORDERED: ONDANSETRON 2MG/ML, 2ML ONE (15:32)
[2020-01-03] MEDS ORDERED: MORPHINE SULFATE 4 MG/ML, 1ML ONE (15:32)
[2020-01-03 15:37] LABS: ALBUMIN 3.8 g/dL (3.4-5.0); ANION GAP 5 mmol/L (5-15); CHLORIDE 113 mmol/L (98-107)
[2020-01-03 15:40] LABS: ALANINE AMINOTRANSFERASE 25 U/L (12-78); ALKALINE PHOSPHATASE 53 U/L (45-117); BILIRUBIN,TOTAL 0.4 mg/dL (0.2-1.0); CREATININE 0.84 mg/dL (0.55-1.02); TOTAL PROTEIN 7.2 g/dL (6.4-8.2)
[2020-01-03 17:18] LABS: MICROSCOPIC AUTO
== END 2020-01-03 18:14 | disposition home or self-care (01) ==
LOC: ED 18:00
DX: N30.00 Acute cystitis without hematuria (principal); R10.30 Lower abdominal pain, unspecified; R11.0 Nausea
CPT/HCPCS: 36415; 73630; 76830; 80053; 81001; 83690; 85025; 87086; 96374; 96375; 99285; J2270; J2405

== ENCOUNTER 2020-08-30 09:13 | Emergency (ER) | payer MEDICAID ==
[~2020-08-30] VITALS: Ht 160 cm; Wt 75.5 kg
[~2020-08-30 09:13] MED LIST changes: -ALPR0.5T6 PO; +ALPR0.5T93 PO; -HYDR-3246 PO; +HYDR-3248 PO; -OXYC-302 PO; -OXYC-307 PO; +OXYC-380 PO; +OXYC1TAB14 PO
--- NOTE | 2020-08-30 09:43 | NUR ---
PT C/O DIARRHEA AND NAUSEA FOR THE LAST 2 DAYS. PT STARTED VOMITING LAT NIGHT. WHEN WIPING PT EXPERIENCED BLEEDING. PT ALSO STATES ITCHING AND PAIN AROUND HER ANUS. PT ALSO HAVING ABD PAIN LEFT UPPER AND LOWER QUADRANTS.
[2020-08-30] MEDS ORDERED: MORPHINE SULFATE 4 MG/ML, 1ML IVPush PRN (10:00)
[2020-08-30 10:19] LABS: BASOPHILS % (AUTO) 1 % (0-1); EOSINOPHILS % (AUTO) 2 % (1-7); LYMPHOCYTES % (AUTO) 40 % (22-44); MEAN CORPUSCULAR HEMOGLOBIN 33.9 pg (27.0-34.8); MEAN CORPUSCULAR HGB CONC 34.9 g/dL (32.4-35.8); MEAN PLATELET VOLUME 6.3 fL (7.4-10.4); MONOCYTES % (AUTO) 8 % (2-9); NEUTROPHILS % (AUTO) 50 % (42-75); PLATELET COUNT 291 x10^3/uL (130-400); RED BLOOD COUNT 4.45 x10^6/uL (3.82-5.3); RED CELL DISTRIBUTION WIDTH 12.9 % (9.6-15.2)
[2020-08-30 10:21] LABS: MD NO
[2020-08-30 10:25] LABS: ALANINE AMINOTRANSFERASE 39 U/L (12-78); ALBUMIN 4.1 g/dL (3.4-5.0); ANION GAP 5 mmol/L (5-15); CALCIUM 8.8 mg/dL (8.5-10.1); CHLORIDE 111 mmol/L (98-107); CREATININE 0.74 mg/dL (0.55-1.02)
[2020-08-30 10:27] LABS: ALKALINE PHOSPHATASE 57 U/L (45-117); BILIRUBIN,TOTAL 0.6 mg/dL (0.2-1.0); TOTAL PROTEIN 7.6 g/dL (6.4-8.2)
[2020-08-30] MEDS ORDERED: ONDANSETRON 2MG/ML, 2ML IVPush ONE (10:30)
[2020-08-30] MEDS ORDERED: SODIUM CHLORIDE 0.9% 1,000ML IVBOLUS ONE (10:30)
[2020-08-30] MEDS ORDERED: ONDANSETRON 2MG/ML, 2ML ONE (10:37)
[2020-08-30] MEDS ORDERED: MORPHINE SULFATE 4 MG/ML, 1ML ONE (10:37)
[2020-08-30 10:42] LABS: MICROSCOPIC AUTO
[2020-08-30] MEDS ORDERED: OMNIPAQUE 350 MG/ML, 100ML BOTTLE ONE (12:56)
[2020-08-30 13:17] VITALS: BP 110/62
--- NOTE | 2020-08-30 13:18 | NUR ---
PT REC'VD DISCHARGE INSTRUCTIONS AND EDUCATION. PT HAD NO FURTHER QUESTIONS. PT AMBULATED TO DC AREA, STEADY GAIT.
== END 2020-08-30 13:21 | disposition home or self-care (01) ==
LOC: ED 10:38
DX: K52.9 Noninfective gastroenteritis and colitis, unspecified (principal); B35.6 Tinea cruris; R11.2 Nausea with vomiting, unspecified; R10.9 Unspecified abdominal pain; F17.210 Nicotine dependence, cigarettes, uncomplicated; Z98.51 Tubal ligation status; Z90.710 Acquired absence of both cervix and uterus
CPT/HCPCS: 36415; 74177; 80053; 81001; 83690; 85025; 87086; 93005; 96361; 96374; 96375; 99285; 99406; J2270; J2405; J7030; Q9967

== ENCOUNTER 2020-09-12 09:13 | Emergency (ER) | payer MEDICAID ==
[~2020-09-12] VITALS: Ht 160 cm; Wt 76.8 kg
[2020-09-12] MEDS ORDERED: SODIUM CHLORIDE FLUSH 10ML SYR IVF ONE (10:00)
[2020-09-12 10:04] LABS: BASOPHILS % (AUTO) 0 % (0-1); EOSINOPHILS % (AUTO) 1 % (1-7); LYMPHOCYTES % (AUTO) 36 % (22-44); MEAN PLATELET VOLUME 6.2 fL (7.4-10.4); MONOCYTES % (AUTO) 8 % (2-9); NEUTROPHILS % (AUTO) 55 % (42-75); PLATELET COUNT 282 x10^3/uL (130-400); RED BLOOD COUNT 4.14 x10^6/uL (3.82-5.3); RED CELL DISTRIBUTION WIDTH 13.2 % (9.6-15.2)
[2020-09-12 10:08] LABS: MD NO
[2020-09-12 10:11] LABS: ALANINE AMINOTRANSFERASE 26 U/L (12-78); ALBUMIN 3.8 g/dL (3.4-5.0); ANION GAP 8 mmol/L (5-15); CALCIUM 8.5 mg/dL (8.5-10.1); CHLORIDE 110 mmol/L (98-107); CREATININE 0.83 mg/dL (0.55-1.02)
[2020-09-12 10:16] LABS: ALKALINE PHOSPHATASE 63 U/L (45-117); BILIRUBIN,TOTAL 0.3 mg/dL (0.2-1.0); TOTAL PROTEIN 7.1 g/dL (6.4-8.2)
[2020-09-12] MEDS ORDERED: ONDANSETRON 2MG/ML, 2ML ONE (10:24)
[2020-09-12] MEDS ORDERED: SODIUM CHLORIDE 0.9% 1,000ML IVBOLUS ONE (10:30)
[2020-09-12] MEDS ORDERED: ONDANSETRON 2MG/ML, 2ML IVPush ONE (10:30)
--- NOTE | 2020-09-12 11:08 | NUR ---
PT AMBULATED TO BATHROOM, STEADY GAIT. URINE SAMPLE COLLECTED AND SENT TO LAB. PT RTD TO ROOM W/O INCIDENT. IVF INFUSING W/O DIFFICULTY. PT C/O CONTINUED PAIN 01/29 AND REQUESTS PAIN MEDICATION.
[2020-09-12] MEDS ORDERED: MORPHINE SULFATE 4 MG/ML, 1ML ONE (11:23)
[2020-09-12] MEDS ORDERED: MORPHINE SULFATE 4 MG/ML, 1ML IVPush PRN (11:30)
[2020-09-12 12:15] LABS: MICROSCOPIC INDICATED
--- NOTE | 2020-09-12 12:15 | NUR ---
PT TO XRAY
--- NOTE | 2020-09-12 12:25 | NUR ---
PT BACK FROM XRAY. NAD NOTED/VSS
[2020-09-12 13:22] VITALS: BP 107/70
--- NOTE | 2020-09-12 13:24 | NUR ---
PT PAIN NOW 10. Patient/Caregiver given discharge instructions and they have confirmed that they understand the instructions. Patient ambulatory with steady gait.
== END 2020-09-12 13:25 | disposition home or self-care (01) ==
LOC: ED 09:19
DX: R10.84 Generalized abdominal pain (principal); R11.2 Nausea with vomiting, unspecified; R10.30 Lower abdominal pain, unspecified
CPT/HCPCS: 36415; 74021; 80053; 81001; 83690; 84703; 85025; 87086; 96361; 96374; 96375; 99284; J2270; J2405; J7030

== ENCOUNTER 2020-10-04 14:56 | Emergency (ER) | payer MEDICAID ==
[~2020-10-04] VITALS: Ht 160 cm; Wt 74.5 kg
--- NOTE | 2020-10-04 15:16 | NUR ---
PT SITTING ON [facility]/VSS. MONITORS IN PLACE. CALL LIGHT WITHIN REACH. NO NEEDS AT THIS TIME.
--- NOTE | 2020-10-04 15:23 | NUR ---
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
[2020-10-04] MEDS ORDERED: SODIUM CHLORIDE 0.9% 1,000ML IVBOLUS ONE (15:30)
[2020-10-04] MEDS ORDERED: ONDANSETRON 2MG/ML, 2ML ONE (15:30)
[2020-10-04] MEDS ORDERED: ONDANSETRON 2MG/ML, 2ML IVPush ONE (15:30)
[2020-10-04] MEDS ORDERED: MORPHINE SULFATE 4 MG/ML, 1ML ONE ×2 (15:30→17:16)
[2020-10-04] MEDS: MORPHINE SULFATE 4 MG/ML, 1ML IVPush PRN ×2 (15:41→17:20)
[2020-10-04 15:52] LABS: BASOPHILS % (AUTO) 1 % (0-1); EOSINOPHILS % (AUTO) 2 % (1-7); LYMPHOCYTES % (AUTO) 37 % (22-44); MEAN CORPUSCULAR HEMOGLOBIN 34.1 pg (27.0-34.8); MEAN CORPUSCULAR HGB CONC 34.6 g/dL (32.4-35.8); MEAN PLATELET VOLUME 6.3 fL (7.4-10.4); MONOCYTES % (AUTO) 8 % (2-9); NEUTROPHILS % (AUTO) 53 % (42-75); PLATELET COUNT 284 x10^3/uL (130-400); RED BLOOD COUNT 4.53 x10^6/uL (3.82-5.3); RED CELL DISTRIBUTION WIDTH 12.9 % (9.6-15.2)
[2020-10-04 15:54] LABS: MD NO
[2020-10-04 16:04] LABS: ALANINE AMINOTRANSFERASE 26 U/L (12-78); ALBUMIN 4.2 g/dL (3.4-5.0); ANION GAP 3 mmol/L (5-15); CALCIUM 8.9 mg/dL (8.5-10.1); CHLORIDE 110 mmol/L (98-107); CREATININE 0.78 mg/dL (0.55-1.02)
[2020-10-04 16:09] LABS: ALKALINE PHOSPHATASE 68 U/L (45-117); BILIRUBIN,TOTAL 0.3 mg/dL (0.2-1.0); TOTAL PROTEIN 7.8 g/dL (6.4-8.2)
[2020-10-04 16:29] LABS: MICROSCOPIC INDICATED
--- NOTE | 2020-10-04 16:30 | NUR ---
PT CALMLY SITTING ON GURNEY, ON HER PHONE. NADN/VSS. PT STATES PAIN HAS DECREASED AFTER MEDICATION. CALL LIGHT WITHIN REACH. NO NEEDS AT THIS TIME.
--- NOTE | 2020-10-04 16:45 | NUR ---
PT TO CT
--- NOTE | 2020-10-04 16:58 | NUR ---
PT BACK FROM CT
[2020-10-04] MEDS ORDERED: OMNIPAQUE 350 MG/ML, 100ML BOTTLE ONE (17:04)
[2020-10-04 17:59] LABS: MICROSCOPIC NOT IND
--- NOTE | 2020-10-04 18:04 | NUR ---
PT LAYING ON GUS, ON HER PHONE. NADN/VSS. CALL LIGHT WITHIN REACH. NO NEEDS AT THIS TIME
[2020-10-04 18:38] VITALS: BP 96/57
--- NOTE | 2020-10-04 18:39 | NUR ---
Patient given discharge instructions and they have confirmed that they understand the instructions. Patient ambulatory with steady gait.
== END 2020-10-04 18:43 | disposition home or self-care (01) ==
LOC: ED 17:05
DX: R31.29 Other microscopic hematuria (principal); R10.31 Right lower quadrant pain; R10.84 Generalized abdominal pain; R11.2 Nausea with vomiting, unspecified; R19.7 Diarrhea, unspecified; F17.210 Nicotine dependence, cigarettes, uncomplicated; Z98.51 Tubal ligation status; Z90.710 Acquired absence of both cervix and uterus
CPT/HCPCS: 36415; 74177; 80053; 81001; 81003; 83690; 84703; 85025; 87086; 96361; 96374; 96375; 96376; 99285; 99406; J2270; J2405; J7030; Q9967

== ENCOUNTER 2020-10-31 01:33 | Emergency (ER) | payer MEDICAID ==
[~2020-10-31] VITALS: Ht 160 cm; Wt 79.1 kg
[2020-10-31 01:35] VITALS: BP 107/73
[2020-10-31] MEDS ORDERED: METOCLOPRAMIDE 10MG TABLET PO SCH (02:00)
[2020-10-31] MEDS ORDERED: ONDANSETRON ODT 4 MG PO ONE (02:00)
[2020-10-31] MEDS ORDERED: ONDANSETRON ODT 4 MG ONE (02:05)
[2020-10-31] MEDS ORDERED: METOCLOPRAMIDE 10MG TABLET ONE (02:06)
[2020-10-31 02:22] LABS: MICROSCOPIC NOT IND
[2020-10-31 02:29] LABS: BASOPHILS % (AUTO) 0 % (0-1); EOSINOPHILS % (AUTO) 3 % (1-7); LYMPHOCYTES % (AUTO) 43 % (22-44); MD NO; MEAN CORPUSCULAR HEMOGLOBIN 34.1 pg (27.0-34.8); MEAN CORPUSCULAR HGB CONC 34.6 g/dL (32.4-35.8); MEAN PLATELET VOLUME 6.5 fL (7.4-10.4); MONOCYTES % (AUTO) 6 % (2-9); NEUTROPHILS % (AUTO) 48 % (42-75); PLATELET COUNT 249 x10^3/uL (130-400); RED BLOOD COUNT 3.89 x10^6/uL (3.82-5.3); RED CELL DISTRIBUTION WIDTH 12.6 % (9.6-15.2)
[2020-10-31 02:37] LABS: ALANINE AMINOTRANSFERASE 31 U/L (12-78); ALBUMIN 3.3 g/dL (3.4-5.0); ANION GAP 5 mmol/L (5-15); CALCIUM 7.9 mg/dL (8.5-10.1); CHLORIDE 112 mmol/L (98-107); CREATININE 0.67 mg/dL (0.55-1.02)
[2020-10-31 02:41] LABS: ALKALINE PHOSPHATASE 62 U/L (45-117); BILIRUBIN,TOTAL 0.1 mg/dL (0.2-1.0); TOTAL PROTEIN 6.1 g/dL (6.4-8.2)
[2020-10-31] MEDS ORDERED: KETOROLAC 30 MG/1 ML IM ONE (03:00)
[2020-10-31] MEDS ORDERED: KETOROLAC 30 MG/1 ML ONE (03:20)
== END 2020-10-31 03:53 | disposition home or self-care (01) ==
LOC: ED 02:01
DX: R10.84 Generalized abdominal pain (principal); R11.2 Nausea with vomiting, unspecified; R10.30 Lower abdominal pain, unspecified; Z90.710 Acquired absence of both cervix and uterus
CPT/HCPCS: 36415; 80053; 81003; 83690; 84703; 85025; 96372; 99283; J1885; Q0162; Q0181

== ENCOUNTER 2021-01-02 17:43 | Emergency (ER) | payer MEDICAID ==
[~2021-01-02] VITALS: Ht 160 cm; Wt 76.7 kg
[2021-01-02 20:00] VITALS: BP 111/56
[2021-01-02 20:06] LABS: BASOPHILS % (AUTO) 0 % (0-1); EOSINOPHILS % (AUTO) 2 % (1-7); LYMPHOCYTES % (AUTO) 29 % (22-44); MEAN CORPUSCULAR HEMOGLOBIN 33.9 pg (27.0-34.8); MEAN CORPUSCULAR HGB CONC 34.1 g/dL (32.4-35.8); MEAN PLATELET VOLUME 6.7 fL (7.4-10.4); MONOCYTES % (AUTO) 9 % (2-9); NEUTROPHILS % (AUTO) 61 % (42-75); PLATELET COUNT 282 x10^3/uL (130-400); RED BLOOD COUNT 4.46 x10^6/uL (3.82-5.3); RED CELL DISTRIBUTION WIDTH 12.7 % (9.6-15.2)
[2021-01-02 20:16] LABS: ALBUMIN 3.7 g/dL (3.4-5.0); ANION GAP 6 mmol/L (5-15); CALCIUM 8.8 mg/dL (8.5-10.1); CHLORIDE 108 mmol/L (98-107)
--- NOTE | 2021-01-02 20:25 | NUR ---
PT STATES LOW ABD PAIN, HX OF SAME. PT PLACED ON MONITORS, VSS. PT AWARE NEEDS URINE SAMPLE. CONT TO MONITOR.
[2021-01-02 20:35] LABS: ALANINE AMINOTRANSFERASE 34 U/L (12-78); ALKALINE PHOSPHATASE 61 U/L (45-117); BILIRUBIN,TOTAL 0.4 mg/dL (0.2-1.0); CREATININE 0.73 mg/dL (0.55-1.02); TOTAL PROTEIN 7.4 g/dL (6.4-8.2)
[2021-01-02] MEDS ORDERED: SODIUM CHLORIDE 0.9% 1,000ML IVBOLUS ONE (21:30)
[2021-01-02] MEDS ORDERED: KETOROLAC 30 MG/1 ML IVPush ONE (21:30)
[2021-01-02] MEDS ORDERED: ONDANSETRON 2MG/ML, 2ML IVPush ONE (21:30)
[2021-01-02] MEDS ORDERED: FAMOTIDINE 20 MG/2 ML IVPush ONE (21:30)
[2021-01-02] MEDS ORDERED: SODIUM CHLORIDE FLUSH 10ML SYR IVF ONE (21:30)
[2021-01-02] MEDS ORDERED: ONDANSETRON 2MG/ML, 2ML ONE (21:47)
[2021-01-02] MEDS ORDERED: FAMOTIDINE 20 MG/2 ML ONE (21:47)
[2021-01-02] MEDS ORDERED: KETOROLAC 30 MG/1 ML ONE (21:47)
--- NOTE | 2021-01-02 21:55 | NUR ---
BROUGHT PAIN MEDICATIONS INTO PT'S ROOM PER ORDER. PT ASKED THIS RN "WHAT PAIN MEDICATIONS AM I GETTING?" WHEN PT TOLD MEDICATIONS ORDERED, SHE STATED SHE "HAS AN EMERGENCY AND NEEDS TO LEAVE THE ER AND GO HOME." PT GIVEN AMA FORM AND EXPALINED RISKS. PT LEFT ER WITH ALL OWN BELONGINGS AND HAS STEADY GAIT.
== END 2021-01-02 22:15 | disposition left against medical advice (07) ==
LOC: ED 18:13
DX: R11.2 Nausea with vomiting, unspecified (principal); R10.84 Generalized abdominal pain; R10.32 Left lower quadrant pain; F17.200 Nicotine dependence, unspecified, uncomplicated; Z90.710 Acquired absence of both cervix and uterus
CPT/HCPCS: 36415; 80053; 84703; 85025; 99283